=== PATIENT | female | born 1960 | race Caucasian/White ===

== ENCOUNTER → 2020-08-16 09:28 | Outpatient (CLI) | payer BC, SELFPAY ==
--- NOTE | ~2020-08-16 | DEXA_ITS ---
Bone Density Report Name: Fang Crisostomo Age: 60 Sex: Female Ethnicity: White Date of : 1960 Indication: osteopenia; monitoring treatment; parental hip fracture; height loss; postmenopausal Referring Provider: Priyanka, Cassia Study: Bone densitometry was performed. Exam Date: August 16, 2020 Accession number: [id number] Bone Density: Region BMD T-score Z-score Classification AP Spine (L1-L4) 0.938 -1.0 0.4 Normal Femoral Neck (Left) 0.660 -1.7 -0.4 Osteopenia Total Hip (Left) 0.816 -1.0 -0.1 Normal Femoral Neck (Right) 0.628 -2.0 -0.7 Osteopenia Total Hip (Right) 0.802 -1.1 -0.2 Osteopenia Total Hip Mean 0.809 -1.1 -0.2 Osteopenia World Health Organization criteria for BMD impression classify patients as: Normal (T-score at or above -1.0), Osteopenia (T-score between -1.0 and -2.5), or Osteoporosis (T-score at or below -2.5). 10-year Fracture Risk: FRAX not reported because: Treated for osteoporosis Previous Exams: Region Exam Age BMD T-score BMD Change BMD Change Date g/cm2 vs Baseline vs Previous AP Spine(L1-L4) 08/16/2020 60 0.938 -1.0 0.104* 0.104* 04/09/2018 57 0.835 -1.9 Total Hip(Left) 08/16/2020 60 0.816 -1.0 0.056* 0.056* 04/09/2018 57 0.760 -1.5 Total Hip(Right) 08/16/2020 60 0.802 -1.1 0.056* 0.056* 04/09/2018 57 0.746 -1.6 *Denotes significance at 95% confidence level, LSC for AP Spine = 0.022 g/cm2, LSC for Total Hip = 0.027 g/cm2 Clinical Information Provided by Patient: Parent has had a hip fracture Is being treated for osteoporosis Has used the following medications: Fosamax (i.e. alendronate), Vitamin D, Calcium Patient maximum height was 62 Menopause Age: 53 No regular weight bearing exercise Drinks caffeinated beverages Onset of menses at age 13 Number of children 4 Impression: The patient has low bone mass, based on the Right Femoral Neck T-score. The patient has risk factors, including: parental hip fracture. No significant bone loss was observed. Discussion: PATIENT UNDER TREATMENT WITH NO SIGNIFICANT BMD LOSS SINCE LAST EXAM. In an untreated patient, BMD typically declines with age. A lack of decline or gain is usually a sign that treatment is efficacious and fracture risk is reduced. It is important to ask patients whether they are taking their medications and to encourage continued and appropriate compliance with their osteoporosis t
== END ==
PROVIDERS: PCP Family Medicine; Visit Provider Nurse Practitioner
DX: M85.88 Other specified disorders of bone density and structure, other site (principal); M85.852 Other specified disorders of bone density and structure, left thigh; M85.851 Other specified disorders of bone density and structure, right thigh
CPT/HCPCS: 77080

== ENCOUNTER 2022-02-13 12:44 | Outpatient (CLI) | payer BC, SELFPAY | END 2022-02-13 12:45 | disposition home or self-care (01) | LOC: ANHAUDIO 12:45 | PROVIDERS: PCP Family Medicine; Visit Provider Otolaryngology | DX: H91.93 Unspecified hearing loss, bilateral (principal); H93.13 Tinnitus, bilateral | CPT/HCPCS: 92557; 92567 ==

== ENCOUNTER → 2022-10-05 16:11 | Outpatient (CLI) | payer BC, SELFPAY ==
--- NOTE | ~2022-10-05 | DEXA_ITS ---
Bone Density Report Name: GEOFF CHAVEZ Age: 62 Sex: Female Ethnicity: White Date of : 1960 Indication: osteopenia; parental hip fracture; height loss; postmenopausal Referring Provider: YADIRA, RONAL Study: Bone densitometry was performed. Exam Date: October 05, 2022 Accession number: [id number] Bone Density: Region BMD T-score Z-score Classification AP Spine (L1-L4) 0.879 -1.5 0.0 Osteopenia Femoral Neck (Left) 0.609 -2.2 -0.8 Osteopenia Total Hip (Left) 0.755 -1.5 -0.5 Osteopenia Femoral Neck (Right) 0.632 -2.0 -0.6 Osteopenia Total Hip (Right) 0.752 -1.6 -0.5 Osteopenia Total Hip Mean 0.754 -1.6 -0.5 Osteopenia World Health Organization criteria for BMD impression classify patients as: Normal (T-score at or above -1.0), Osteopenia (T-score between -1.0 and -2.5), or Osteoporosis (T-score at or below -2.5). 10-year Fracture Risk(1): Major Osteoporotic Fracture 20% Hip Fracture 1.6% Reported Risk Factors: [place] (), Neck BMD=0.609, BMI=25.8, parental fracture (1) FRAX(R) Version 3.08. Fracture probability calculated for an untreated patient. Fracture probability may be lower if the patient has received treatment. Previous Exams: Region Exam Age BMD T-score BMD Change BMD Change Date g/cm2 vs Baseline vs Previous AP Spine(L1-L4) 10/05/2022 62 0.879 -1.5 0.045* -0.059* 08/16/2020 60 0.938 -1.0 0.104* 0.104* 04/09/2018 57 0.835 -1.9 Total Hip(Left) 10/05/2022 62 0.755 -1.5 -0.005 -0.061* 08/16/2020 60 0.816 -1.0 0.056* 0.056* 04/09/2018 57 0.760 -1.5 Total Hip(Right) 10/05/2022 62 0.752 -1.6 0.005 -0.051* 08/16/2020 60 0.802 -1.1 0.056* 0.056* 04/09/2018 57 0.746 -1.6 *Denotes significance at 95% confidence level, LSC for AP Spine = 0.022 g/cm2, LSC for Total Hip = 0.027 g/cm2 Clinical Information Provided by Patient: Parent has had a hip fracture Has used the following medications: Vitamin D, Calcium Patient maximum height was 62 Menopause Age: 53 No regular weight bearing exercise Drinks caffeinated beverages Onset of menses at age 13 Number of children 4 Impression: The patient has low bone mass, based on the Left Femoral Neck T-score. The patient has an estimated ten-year risk of hip fracture of 1.6% and an estimated ten-year risk of major fracture of 20%, b
== END ==
PROVIDERS: PCP Family Medicine; Visit Provider Nurse Practitioner
DX: Z13.820 Encounter for screening for osteoporosis (principal); M85.88 Other specified disorders of bone density and structure, other site; M85.852 Other specified disorders of bone density and structure, left thigh; M85.851 Other specified disorders of bone density and structure, right thigh
CPT/HCPCS: 77080

== ENCOUNTER 2024-11-16 12:38 | Outpatient (CLI) | payer BC, SELFPAY ==
--- NOTE | ~2024-11-16 | DEXA_ITS ---
Bone Density Report Name: GEOFF CHAVEZ Age: 64 Sex: Female Ethnicity: White Date of : 1960 Indication: postmenopausal; screening for osteoporosis; height loss; cancer; Referring Provider: KRISTY, CITLALI Study: Bone densitometry was performed. Exam Date: November 16, 2024 Accession number: [id number] Bone Density: Region BMD T-score Z-score Classification AP Spine(L1, L2, L3) 0.769 -2.3 -0.6 Osteopenia Femoral Neck (Left) 0.641 -1.9 -0.4 Osteopenia Total Hip (Left) 0.801 -1.2 0.0 Osteopenia Femoral Neck (Right) 0.612 -2.1 -0.7 Osteopenia Total Hip (Right) 0.841 -0.8 0.4 Normal Total Hip Mean 0.821 -1.0 0.2 Normal World Health Organization criteria for BMD impression classify patients as: Normal (T-score at or above -1.0), Osteopenia (T-score between -1.0 and -2.5), or Osteoporosis (T-score at or below -2.5). 10-year Fracture Risk(1): Major Osteoporotic Fracture 10% Hip Fracture 1.6% Reported Risk Factors: [place] (), Neck BMD=0.612, BMI=24.0 (1) FRAX(R) Version 3.08. Fracture probability calculated for an untreated patient. Fracture probability may be lower if the patient has received treatment. Clinical Information Provided by Patient: Has used the following medications: Fosamax (i.e. alendronate), Vitamin D, Calcium Has the following medical conditions: Cancer Patient maximum height was 62 Menopause Age: 54 No regular weight bearing exercise Drinks caffeinated beverages Onset of menses at age 12 Number of children 4 Impression: The patient has low bone mass, based on the Total Spine T-score. The patient has an estimated ten-year risk of hip fracture of 1.6% and an estimated ten-year risk of major fracture of 10%, based on the WHO FRAX algorithm. Discussion: BONE DENSITY IS LOW AT ONE OR MORE SKELETAL SITES. This patient's lowest T-score is low at one or more skeletal sites. It meets the World Health Organization's (WHO) criteria for ?low bone mass? (T-score between -1.0 and -2.5). The patient's 10-year risk of fracture as calculated by FRAX is less than the threshold where pharmacological therapy is recommended by the National Osteoporosis Foundation (NOF). However, all treatment decisions require clinical judgment and consideration of individual patient factors, including patient preferences, comorbidities, previous drug use, risk factors not captured in the FRAX model (e.g., frailty, falls, vitamin D deficiency, increased bone turnover, interval significant decline in bone density) and possible under or overestimation of fracture risk by FRAX. The patient should follow a healthful lifestyle (good nutrition with adequate calcium and vitamin D, and appropriate weight-bearing exercise). Follow-Up: Consider repeating this study in 2 to 3 years to reassess this patient's status, or sooner if there is some new clinical indication. Reported by: TIFFANY on 11/16/2024 1:13:00 PM. Reviewed, dictated and finalized at location AFran LUONG
--- OUTSIDE RECORDS SUMMARY | 2024-11-16 13:11 | XMS_ITS | Encounter Summary ---
Author Organization [facility] Address [address] [place] [address] Phone Care Team Providers Care Hat Brim Curler Name Role Phone Giselle Alexander MD Primary Care Provider [phone] Nina Miles DYE WINCH OPERATOR Unavailable [phone] Encounter Details Date Type Department Care Team (Late Contact Info) Description 07/23/2024 Telephone [facility] Surgery [address] [place] [address] [address] [place] [address] Tremaine Mari Social History Tobacco Use Types Packs/Day Years Used Date Smoking Tobacco: Never Smokeless Tobacco: Never Alcohol Use Standard Drinks/Week Comments No 0 (1 standard drink = 0.6 oz pur e alcohol) AUDIT-C Answer Date Recorded Frequency of Alcohol Consumption Not on file 05/15/2024 Q2: How many drinks containi ng alcohol do you have on a typical day when you are drinking? 1 or 2 05/15/2024 Q3: How often do you have si x or more drinks on one occasion? Less than monthly 05/15/2024 Comments Unknown Sex and Gender Information Value Date Recorded Sex Assigned at Not on file Legal Sex Female 5:22 AM BURRITO MAKER Gender Identity Female 05/10/2023 8:01 AM CDT Sexual Orientation Not on file documented as of this encounter Plan of Treatment Upcoming Encounters Date Type Department Care Team (Late Contact Info) Description 12/07/2024 1:00 PM BURRITO MAKER Hospital Encounter [facility] Operating [facility] ([facility]) [address] [place] [address] Rickie Dougherty MD [address] [facility] [id number] [place] [address] 12/07/2024 1:00 PM BURRITO MAKER - 12/07/2024 4:25 PM BURRITO MAKER Surgery [facility] Operating Room [facility] ([facility]) [address] [place] [address] Rickie Dougherty MD [address] [facility] [id number] [place] [address] REMOVAL IMPLANT BREAST Scheduled Procedures Name Priority Associated Diagnoses Date/Ti me REMOVAL IMPLANT BREAST Bilateral malignant neoplasm of breast in female, unspecified estrogen receptor status, unspecified site of breast (HCC) 12/07/2024 1:00 PM BURRITO MAKER CAPSULECTOMY BREAST Bilateral malignant neoplasm of breast in female, unspecified estrogen receptor status, unspecified site of breast (HCC) 12/07/2024 1:00 PM BURRITO MAKER REVISION BREAST Bilateral malignant neoplasm of breast in female, unspecified estrogen receptor status, unspecified site of breast (HCC) 12/07/2024 1:00 PM BURRITO MAKER PLACEMENT BREAST IMPLANT Bilateral malignant neoplasm of breast in female, unspecified estrogen receptor status, unspecified site of breast (HCC) 12/07/2024 1:00 PM BURRITO MAKER documented as of this encounter Visit Diagnoses Not on filedocumented in this encounter Care Teams Hat Brim Curler Relationship Specialty Start Date End Date Giselle Alexander MD PCP - General Family Medicine 10/01/18 Nina Miles NP [address] [place] [address] Nurse Practitioner Medical Oncology 06/28/22 documented as of this encounter
--- OUTSIDE RECORDS SUMMARY | 2024-11-16 13:11 | XMS_ITS | Clinical Summary ---
Author Organization [facility] Address [address] [place] [address] Care Team Providers Care Statistical Secretary Name Role Phone Giselle Alexander MD Primary Care Provider [phone] Source Comments [facility],non-owned Affiliates and Associated Physician Practices is amultiple site organization consisting of ambulatory clinics and hospital sitesin [place], [place], [place] and [place]. This disclosure is being madepursuant to the Care Everywhere program and may not contain all information available regarding this patient. Last updated 18.[facility] Social History Tobacco Use Types Packs/Day Years Used Date Smoking Tobacco: Never Assessed Sex and Gender Information Value Date Recorded Sex Assigned at Not on file Gender Identity Not on file Sexual Orientation Not on file Plan of Treatment Health Maintenance Due Date Last Done Comments COLOGUARD (AGES 45-75) - COL ON CA SCREENING 1960 COLON MONITORING 1960 COLONOSCOPY - COLON CA SCREENING 1960 CT COLONOGRAPHY - COLON CA SCREENING 1960 Colorectal Cancer Screening 1960 FIT - COLON CA SCREENING 1960 FLEX SIG - COLON CA SCREENING 1960 LIPID TESTING 1960 MAMMOGRAM 1960 PAP SMEAR 1960 HIV SCREENING 1975 HEPATITIS C SCREENING 07/27/1978 DTAP/TDAP/TD VACCINES (1 - Tdap) 1979 PNEUMOCOCCAL VACCINE 50+ (1 of 1 - PCV) 2010 ZOSTER VACCINE (1 of 2) 2010 COVID-19 VACCINE ( - 2023-2 5 season) 2024 INFLUENZA VACCINE (#1) 2024 DEPRESSION SCREENING 10/21/2024 Respiratory Syncytial Virus (RSV) Vaccine Pt: or over 60 yrs (1 - 1-dose 75+ series) 2035 HEPATITIS B VACCINE Aged Out No longe r eligible based on patient's age to complete this topic HIB VACCINE Aged Out No longer eligi ble based on patient's age to complete this topic HPV VACCINE Aged Out No longer eligi ble based on patient's age to complete this topic MENINGOCOCCAL (Group B) VACCINE Aged Out No longer eligible based on patient's age to complete this topic MENINGOCOCCAL VACCINE Aged Out No kelly fernanda eligible based on patient's age to complete this topic PNEUMOCOCCAL VACCINE Aged Out No long er eligible based on patient's age to complete this topic Care Teams Statistical Secretary Relationship Specialty Start Date End Date Giselle Alexander MD [address] [place] [address] PCP - General 11/27/12
--- OUTSIDE RECORDS SUMMARY | 2024-11-16 13:11 | XMS_ITS | Clinical Summary ---
Author Organization [facility] Address [address] [place] [address]. [place] [address] [place] [address] Care Team Providers Care Sap Grc Security Name Role Phone Giselle Alexander MD Primary Care Provider [phone] Allergies No known active allergies Medications ondansetron (ZOFRAN-ODT) 4 MG disintegrating tablet Take 1 tablet (4 mg total) by mouth every 8 (eight) hours as needed for Nausea. 20 tablet 3 Active Social History Tobacco Use Types Packs/Day Years Used Date Smoking Tobacco: Never Smokeless Tobacco: Never Tobacco Cessation:Counseling Given: Not Answered Alcohol Use Standard Drinks/Week Comments Never 0 (1 standard drink = 0.6 oz pur e alcohol) Comments No Sex and Gender Information Value Date Recorded Sex Assigned at Not on file Legal Sex Female 11:19 PM CDT Gender Identity Not on file Sexual Orientation Not on file Last Filed Vital Signs Vital Sign Reading Time Taken Comments Blood Pressure 127/58 06/10/2023 6:31 PM CDT Pulse 103 06/10/2023 6:31 PM CDT Temperature 36.9 ??C (98.5 ??F) 06/10/2023 6:31 PM CD T Respiratory Rate 18 06/10/2023 6:31 PM CDT Oxygen Saturation 98% 06/10/2023 6:31 PM CDT Inhaled Oxygen Concentration - - Weight 61.2 kg (135 lb) 06/10/2023 6:31 PM CDT Height 157.5 cm (5' 2 ) 06/10/2023 6:31 PM CDT Body Mass Index 24.69 06/10/2023 6:31 PM CDT Plan of Treatment Health Maintenance Due Date Last Done Comments Cervical Cancer Screening Pa p Smear (Age 30 to 64) Every 3 Years 1960 Colorectal Cancer Screening Colonoscopy (10 Years) 1960 Annual Physical 1963 Hepatitis C 1978 DTaP, Tdap and Td Vaccines ( 1 - Tdap) 1979 Cervical Cancer Screening Pa p with HPV Testing (Age 30 to 64) Every 5 Years 1990 Cervical Cancer Screening wi th HPV 1990 Mammogram Screening 2000 COVID-19 Vaccine (2 - 2023-2 5 season) 2024 12/27/2020 Influenza Adult (#1) 2024 07/23/2020, 08/10/2019 RSV Immunization or 60+ Years (1 - 1-dose 75+ series) 2035 Zoster Vaccines Completed 10/01/2020, 07/23/2020 Meningococcal B Vaccine Aged Out No l onger eligible based on patient's age to complete this topic Meningococcal Vaccine Aged Out No kelly fernanda eligible based on patient's age to complete this topic Pneumococcal Vaccine: Pediatrics (0 to 5 Years) and At-Risk Patients (6 to 64 Years) Aged Out No longer eligible b ased on patient's age to complete this topic RSV Immunizations Under 20 Months Aged Out No longer eligible b ased on patient's age to complete this topic Insurance [facility] Care Teams Sap Grc Security Relationship Specialty Start Date End Date Giselle Alexander MD [address] [place] [address] [place] [address] PCP - General FAMILY PRACTICE 06/10/23
--- OUTSIDE RECORDS SUMMARY | 2024-11-16 13:11 | XMS_ITS | Patient Health Summary ---
Author Organization [facility] Address [address] [place] [address] Care Team Providers Care Steel Fabricating Supervisor Name Role Phone Giselle Alexander MD Primary Care Provider [phone] Note from [facility],non-owned Affiliates and Associated Physician Practices is amultiple site organization consisting of ambulatory clinics and hospital sitesin [place], [place], [place] and [place]. This disclosure is being madepursuant to the Care Everywhere program and may not contain all information available regarding this patient. Last updated 18.[facility] Social History Tobacco Use Types Packs/Day Years Used Date Smoking Tobacco: Never Assessed Sex and Gender Information Value Date Recorded Sex Assigned at Not on file Gender Identity Not on file Sexual Orientation Not on file Procedures * MRI BREAST BILAT [facility] CONTRAST(Performed 04/22/2013) * CREATININE BLOOD - POCT (IP) [facility](Performed 04/22/2013) * MRI BREAST BILAT [facility] CONTRAST(Performed 11/27/2012) * CREATININE BLOOD - POCT (IP) [facility](Performed 11/27/2012) Results * MRI BREAST BILAT [facility] CONTRAST (04/22/2013 11:45 AM CDT) Only the most recent of2 resultswithin the time period is included. Anatomical Region Laterality Modality Breast Bilateral Other Impressions 04/22/2013 3:49 PM CDT IMPRESSION: BI-RADS category 6,biopsy proven malignancy. Minimal linear enhancement identified in the upper outer left breast at the site of the previously biopsied malignancy. This represents a near complete imaging response (with MRI) to chemotherapy. No suspicious findings within either breast. This report was electronically signed by SHAKEEL BUTCHER M.D. ??on 04/22/2013 3:49 PM . Narrative 04/22/2013 3:49 PM CDT MRI of the breasts with and without contrast COMPARISON: Prior breast MRI performed 11/27/2012, as well as diagnostic mammography and ultrasound performed 11/10/2012 on 11/12/2012 HISTORY: The patient has history of left infiltrating ductal carcinoma biopsied 11/12/2012. The patient states that she has not undergone surgery at this time, therefore has likely undergone neoadjuvant chemotherapy. She states that she is premenopausal with a 28 day cycle. She takes no hormones. TECHNIQUE: Multiplanar multisequence MR imaging of both breasts before and following the administration of intravenous gadolinium contrast. Dynamic phase imaging was performed in the axial plane. Exam processed by and interpreted on a [employer] server security administrator including 3-D volume rendering, subtraction image processing and contrast kinetic analysis. FINDINGS: Degree of postcontrast parenchymal enhancement: Moderate. RIGHT: Background parenchymal enhancement has decreased since the prior examination. No suspicious mass or non-mass enhancement is seen within the right breast. Scattered nonspecific enhancing foci are again seen throughout the right breast. Susceptibility artifact from a right chest port is noted along the upper medial right breast. Right axillary lymph nodes are not enlarged. LEFT: The previously seen 2.7 cm mass within the upper outer left breast is no longer identified. At the site of the mass that was seen on the prior examination, faint linear enhancement is identified within a band of soft tissue and edema. Susceptibility artifact from 2 biopsy clips are seen in the upper outer left breast. Left axillary lymph nodes are not enlarged. Left internal mammary lymph nodes are not enlarged. The underlying chest wall, skin and nipple enhanced to a normal degree. Procedure Note Fang Butcher MD - 01/19/2018 MRI of the breasts with and without contrast COMPARISON: Prior breast MRI performed 11/27/2012, as well as diagnosticmammography and ultrasound performed 11/10/2012 on 11/12/2012 HISTORY: The patient has history of left infiltrating ductal carcinomabiopsied 11/12/2012. The patient states that she has not undergone surgeryat this time, therefore has likely undergone neoadjuvant chemotherapy. Shestates that she is premenopausal with a 28 day cycle. She takes no hormones. TECHNIQUE: Multiplanar multisequence MR imaging of both breasts before and followingthe administration of intravenous gadolinium contrast. Dynamic phaseimaging was performed in the axial plane. Exam processed by andinterpreted on a [employer] server security administrator including 3-D volume rendering, subtraction image processing and contrast kineticanalysis. FINDINGS: Degree of postcontrast parenchymal enhancement: Moderate. RIGHT: Background parenchymal enhancement has decreased since the priorexamination. No suspicious mass or non-mass enhancement is seen within theright breast. Scattered nonspecific enhancing foci are again seenthroughout the right breast. Susceptibility artifact from a right chest port is noted along the upper medial rightbreast. Right axillary lymph nodes are not enlarged. LEFT: The previously seen 2.7 cm mass within the upper outer left breast is nolonger identified. At the site of the mass that was seen on the priorexamination, faint linear enhancement is identified within a band of softtissue and edema. Susceptibility artifact from 2 biopsy clips are seen in the upper outer left breast. Leftaxillary lymph nodes are not enlarged. Left internal mammary lymph nodesare not enlarged. The underlying chest wall, skin and nipple enhanced to anormal degree. IMPRESSION IMPRESSION: BI-RADS category 6,biopsy proven malignancy. Minimal linear enhancement identified in the upper outer left breast atthe site of the previously biopsied malignancy. This represents a nearcomplete imaging response (with MRI) to chemotherapy. No suspicious findings within either breast. This report was electronically signed by SHAKEEL BUTCHER M.D. on04/22/2013 3:49 PM . Historical Provider MR ORDERABLES * (ABNORMAL) CREATININE BLOOD - POCT (IP) [facility] (04/22/2013 11:17 AM CDT) Only the most recent of2 resultswithin the time period is included. Creatinine POCT 1.07 0.3 - 1.3 mg/dL [facility] eGFR POCT 57(A) 60 ml/min [facility] 04/22/2013 11:1 7 AM CDT Fang Butcher MD LAB - POINT OF CA RE ORDERABLES [facility] Care Teams Steel Fabricating Supervisor Relationship Specialty Start Date End Date Giselle Alexander MD [address] [place], [place] [id number] [facility] - General 11/27/12
--- OUTSIDE RECORDS SUMMARY | 2024-11-16 13:11 | XMS_ITS | Referral Summary ---
Author Organization [facility] Address [address] [place] [address] Care Team Providers Care Auto Damage Trainee Name Role Phone Giselle Alexander MD Primary Care Provider [phone] Source Comments [facility],non-owned Affiliates and Associated Physician Practices is amultiple site organization consisting of ambulatory clinics and hospital sitesin [place], [place] and [place]. This disclosure is being madepursuant to the Care Everywhere program and may not contain all information available regarding this patient. Last updated 18.[facility] Social History Tobacco Use Types Packs/Day Years Used Date Smoking Tobacco: Never Assessed Sex and Gender Information Value Date Recorded Sex Assigned at Not on file Gender Identity Not on file Sexual Orientation Not on file Plan of Treatment Not on file Care Teams Auto Damage Trainee Relationship Specialty Start Date End Date Giselle Alexander MD [address] [place] [address] PCP - General 11/27/12
--- OUTSIDE RECORDS SUMMARY | 2024-11-16 13:12 | XMS_ITS | Referral Summary ---
Author Organization [facility] Medical [facility] 2 Address [address] [place] [address] Care Team Providers Care Magnetic Tape Composer Operator Name Role Phone Giselle Alexander MD Primary Care Provider [phone] Nina Miles WIRE TRANSFER CLERK Unavailable [phone] Encounters Date Type Department Care Team Description 08/27/2024 11:15 AM MULTIPLE COIL WINDER Office Visit [facility] Surgery [facility] 6th [place] [address] [place] [address] Rickie Dougherty MD Malignant neoplasm of upper-outer quadrant of left breast in female, estrogen receptor positive (HCC); Breast implant leak, initial encounter from Last 3 Months Allergies No known active allergies Medications alendronate (FOSAMAX) 70 mg tablet 10/08/2018 Active fluorouraciL (EFUDEX) 5 % cream APPLY TO THE FACE AND SCALP TWICE A DAY FOR 2 WEEKS 03/30/2020 Active citalopram (CeleXA) 40 mg tablet 04/15/2020 Active lisinopriL (PRINIVIL,ZESTRI L) 10 mg tablet 04/24/2022 Act farrah npjgfly-Z3-pxjas rpup-L-M4-min 166.6 mg-4.15 mcg-83.3 mg tabletIndication s:hypocalcemia Take 500 mg by mouth 2 (two) times a day 30 tablet 3 05/17/2023 Active Active Problems Problem Noted Date Diagnosed Date Bilateral malignant neoplasm of breast in female 11/10/2024 Malignant neoplasm 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, estrogen receptor positive 02/28/2018 Immunizations Name Administration Dates Next Due Influenza, Quadrivalent, Spl it, Preservative Free, Intramuscular 07/23/2020 Influenza, Unspecified 08/10/2019 [employer] (J&J) SARS-CoV-2 Vaccination 12/27/2020 ZOSTER Recombinant 10/01/2020,07/23/2020 Social History Tobacco Use Types Packs/Day Years [...] on file Legal Sex Female 5:22 AM MULTIPLE COIL WINDER Gender Identity Female 05/10/2023 8:01 AM CDT Sexual Orientation Not on file Last Filed Vital Signs Vital Sign Reading Time Taken Comments Blood Pressure 100/66 05/15/2024 7:54 AM CDT Pulse 87 05/15/2024 7:54 AM CDT Temperature 37.1 ??C (98.7 ??F) 05/15/2024 7:54 AM CD T Respiratory Rate 18 05/15/2024 7:54 AM CDT Oxygen Saturation 98% 05/15/2024 7:54 AM CDT Inhaled Oxygen Concentration - - Weight 59.8 kg (131 lb 12.8 oz) 05/15/2024 7:54 AM CDT Height 152.4 cm (5') 05/17/2023 8:05 AM CDT Body Mass Index 25.74 05/17/2023 8:05 AM CDT Plan of Treatment Upcoming Encounters Date Type Department Care Team (Late st Contact Info) Description 12/07/2024 1:00 PM MULTIPLE COIL WINDER Hospital Encounter [facility] [address] [place] [address] Rickie Dougherty MD [address] [phone] [place] [address] 12/07/2024 1:00 PM MULTIPLE COIL WINDER - 12/07/2024 4:25 PM MULTIPLE COIL WINDER Surgery [facility] [address] [place] [address] Rickie Dougherty MD [address] [facility] [phone] [place] [address] REMOVAL IMPLANT BREAST Scheduled Procedures Name Priority Associated Diagnoses Date/Ti me REMOVAL IMPLANT BREAST Bilateral malignant neoplasm of breast in female, unspecified estrogen receptor status, unspecified site of breast (HCC) 12/07/2024 1:00 PM MULTIPLE COIL WINDER CAPSULECTOMY BREAST Bilateral malignant neoplasm of breast in female, unspecified estrogen receptor status, unspecified site of breast (HCC) 12/07/2024 1:00 PM MULTIPLE COIL WINDER REVISION BREAST Bilateral malignant neoplasm of breast in female, unspecified estrogen receptor status, unspecified site of breast (HCC) 12/07/2024 1:00 PM MULTIPLE COIL WINDER PLACEMENT BREAST IMPLANT Bilateral malignant neoplasm of breast in female, unspecified estrogen receptor status, unspecified site of breast (HCC) 12/07/2024 1:00 PM MULTIPLE COIL WINDER Insurance [facility] ANTH ACCESS Care Teams Magnetic Tape Composer Operator Relationship Specialty Start Date End Date Giselle Alexander MD PCP - General Family Medicine 10/01/18 Nina Miles NP [address] [place] [address] Nurse Practitioner Medical Oncology 06/28/22
--- OUTSIDE RECORDS SUMMARY | 2024-11-16 13:12 | XMS_ITS | Clinical Summary ---
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 Name Role Phone Giselle Alexander MD Primary Care Provider [phone] Nina Miles GAME PRESERVE MANAGER Unavailable [phone] Allergies No known active allergies Medications alendronate (FOSAMAX) 70 mg tablet 10/08/2018 Active fluorouraciL (EFUDEX) 5 % cream APPLY TO THE FACE AND SCALP TWICE A DAY FOR 2 WEEKS 03/30/2020 Active citalopram (CeleXA) 40 mg tablet 04/15/2020 Active lisinopriL (PRINIVIL,ZESTRI L) 10 mg tablet 04/24/2022 Act farrah qahxhkv-P6-ddynr udlk-S-V9-min 166.6 mg-4.15 mcg-83.3 mg tabletIndication s:hypocalcemia Take 500 mg by mouth 2 (two) times a day 30 tablet 3 05/17/2023 Active Active Problems Problem Noted Date Diagnosed Date Bilateral malignant neoplasm of breast in female 11/10/2024 Malignant neoplasm 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, estrogen receptor positive 02/28/2018 Encounters Date Type Department Care Team Description 08/27/2024 11:15 AM MATTRESS 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 Office Visit [facility] Surgery [facility] 6th [place] [address] [place] [address] Rickie Dougherty MD Malignant neoplasm of upper-outer quadrant of left breast in female, estrogen receptor positive (HCC); Breast implant leak, initial encounter from Last 3 Months Immunizations Name Administration Dates Next Due Influenza, Quadrivalent, Spl it, Preservative Free, Intramuscular 07/23/2020 Influenza, Unspecified 08/10/2019 CRV (J&J) SARS-CoV-2 Vaccination 12/27/2020 ZOSTER Recombinant 10/01/2020,07/23/2020 Surgical History Surgery Date Site/Laterality Comments MASTECTOMY Breast Surgery Mastectomy - (Added by TW Conv) Medical History Medical History Date Comments Personal history of malignan t neoplasm of breast History of malignant neoplas m of breast - (Added by TW Conv) Family History Medical History Relation Name Comments Diabetes Father Family history of diabetes mellitus - (Added by TW Conv) Hypothyroidism Mother Family histor y of hypothyroidism - (Added by TW Conv) Relation Name Status Comments Father Mother Social History Tobacco Use Types Packs/Day Years [...] on file Legal Sex Female 5:22 AM MATTRESS AND FOUNDATION SEWER Gender Identity Female 05/10/2023 8:01 AM CDT Sexual Orientation Not on file Obstetrics History Last Filed Vital Signs Vital Sign Reading [...] st Contact Info) Description 12/07/2024 1:00 PM M[employer]ESS AND FOUNDATION SEWER Hospital Encounter [facility] [address] [place] [address] Rickie Dougherty MD [address] [facility] [phone] [place] [address] 12/07/2024 1:00 PM M[employer] FOUNDATION SEWER - 12/07/2024 4:25 PM [employer]ATION SEWER Surgery [facility] [address] [place] [address] Rickie Dougherty MD [address] [facility] [phone] [place] [address] REMOVAL IMPLANT BREAST Scheduled Procedures Name Priority Associated Diagnoses Date/Ti me REMOVAL IMPLANT BREAST Bilateral malignant neoplasm of breast in female, unspecified estrogen receptor status, unspecified site of breast (HCC) 12/07/2024 1:00 PM [employer] FOUNDATION SEWER CAPSULECTOMY BREAST Bilateral malignant neoplasm of breast in female, unspecified estrogen receptor status, unspecified site of breast (HCC) 12/07/2024 1:00 PM M[employer]ESS AND FOUNDATION SEWER REVISION BREAST Bilateral malignant neoplasm of breast in female, unspecified estrogen receptor status, unspecified site of breast (HCC) 12/07/2024 1:00 PM MATTRESS AND FOUNDATION SEWER PLACEMENT BREAST IMPLANT Bilateral malignant neoplasm of breast in female, unspecified estrogen receptor status, unspecified site of breast (HCC) 12/07/2024 1:00 PM [employer] AND FOUNDATION SEWER Health Maintenance Due Date Last Done Comments Breast Cancer Screening-Mammogram 1960 Cervical Cancer Screening 1960 Colon Cancer Screening-Colonoscopy 1960 Depression Screening 1960 Hepatitis C Screening 1960 DTaP/Tdap/Td Vaccine (1 - Tdap) 1971 Hepatitis B Screening 1978 Regular Well Visit/Exam 18-64 1978 Covid-19 Vaccine (2 2023-2 5 season) 2024 12/27/2020 Influenza Vaccine (#1) 2024 , 08/10/2019 Zoster Vaccine Completed 10/01/2020, 07/23/2020 Pneumococcal vaccine <65 Aged Out No longer eligible based on patient's age to complete this topic Insurance ANTHEM ACCESS ANTHEM ACCESS Care Teams Optical Goods Drilling Machine Operator Relationship Specialty Start Date End Date Giselle Alexander MD PCP - General Family Medicine 10/01/18 Nina Miles NP [address] [place] [id number] Nurse Practitioner Medical Oncology 06/28/22
== END 2024-11-16 12:39 | disposition home or self-care (01) ==
LOC: ANHIMG 12:44
PROVIDERS: PCP Family Medicine; Visit Provider Nurse Practitioner Women's Health
DX: Z78.0 Asymptomatic menopausal state (principal); M85.88 Other specified disorders of bone density and structure, other site; M85.852 Other specified disorders of bone density and structure, left thigh; M85.851 Other specified disorders of bone density and structure, right thigh
CPT/HCPCS: 77080

== ENCOUNTER 2025-04-24 11:49 | Outpatient (CLI) | payer BC, SELFPAY ==
--- NOTE | ~2025-04-24 | US_ITS ---
EXAM: ABDOMEN ULTRASOUND HISTORY: R74.8 - Abnormal levels of other serum enzymes COMPARISON: None FINDINGS: LIVER: The liver is unremarkable in echogenicity and size. The portal vein is patent, demonstrating hepatopedal flow. The contour of the liver surface is smooth. GALLBLADDER: Surgically absent BILE DUCTS: Common bile duct measures 8.3mm. PANCREAS: Limited evaluation of the pancreas secondary to overlying bowel gas IMPRESSION: No sonographic abnormalities detected on the submitted images of the liver. Reviewed, dictated and finalized at location A.
== END 2025-04-24 11:50 | disposition home or self-care (01) ==
LOC: MICIMG 11:50
PROVIDERS: PCP Family Medicine; Visit Provider Family Medicine
DX: R74.8 Abnormal levels of other serum enzymes (principal)
CPT/HCPCS: 76705